=== PATIENT | male | born 1945 | race Caucasian/White ===

== ENCOUNTER → 2023-10-06 06:33 | Day surgery (SDC) | payer OTHER, SELFPAY | LOC: GI 06:33 | PROVIDERS: ATTENDING PHYSICIAN Internal Medicine Gastroenterology | DX: Z12.11 Encounter for screening for malignant neoplasm of colon (principal); K57.30 Diverticulosis of large intestine without perforation or abscess without bleeding; K22.710 Barrett's esophagus with low grade dysplasia; K22.70 Barrett's esophagus without dysplasia; K31.7 Polyp of stomach and duodenum; K44.9 Diaphragmatic hernia without obstruction or gangrene; K64.8 Other hemorrhoids; Z80.0 Family history of malignant neoplasm of digestive organs | CPT/HCPCS: 43239; G0105; 88305; 88342 ==

== ENCOUNTER 2023-12-17 15:25 | Emergency (ER) | payer OTHER, SELFPAY ==
[2023-12-17 15:28] VITALS: BP 140/81
[2023-12-17 15:45] VITALS: BP 159/94
[2023-12-17 15:55] VITALS: BMI 29.7
[2023-12-17] MEDS: DILAUDID 0.5 MG IV ×2 (15:58→16:37)
--- NOTE | 2023-12-17 15:59 | ED.GENMED ---
History of Present Illness
General
Chief Complaint: Fall
Source: patient and family
Exam Limitations: none
Time Seen by Provider: 12/17/23 15:40
Nursing documentation reviewed up to this point in time: agreed with
History of Present Illness
History of Present Illness:
78 y/o M with h/o GERD
here with left back pain, shoulder pain, rib pain after falling through the floor whne he was working while standing on subfloor/plank that broke, causing him to fall 10 feet onto the ground
he struck something with his left back on the way down
no anticoagulants
denies headache, loc
no nausea/vomiting/diarrhea
pt has pain with breathing and movement, left shoulder pain and tenderness
denies pelvis pain, abdomianl pain
someone at his work picked him up and brought him
he was able to walk a few steps
no numbness/tingling/wekaness
Past History
Past History
ED Past Medical History: GERD
Social History
Tobacco: Non-smoker
Alcohol: None
Drug: None
Personal:
Living: with family
Review of Systems
Review of Systems
Allergies reviewed?: Yes
All Other Systems: Not applicable
Phy Exam
Physical Exam
Physical Exam:
GENERAL: Alert , in no apparent distress
HEAD: NCAT
NECK: no midline tenderness, active ROM intact, no paraspinal muscle tenderness;
PLACED IN C COLLAR DUE TO MECHANISM
EYE: pupils equal and reactive, EOMs intact.
ENT: o/p clr, mmm. no hemotympanum
CARDIAC: Regular rate and rhythm, no edema
LUNGS: Clear breath sounds bilaterally, no acute respiratory distress, no wheezes/rales/rhonchi
CHEST WALL: SPLINTING WITH BREATHING
ABDOMEN: Soft, without focal tenderness, no r/g, no cvat
BACK: NO MIDLINE TENDNERESS
LEFT FLANK CVA REGION ECCHYMOSIS AND TENDERNESS
NEUROLOGICAL: Alert and oriented, no focal neuro deficits, CN intact, 5/5 strength, sensation intact
SKIN: Warm and dry,
LEFT FLANK ERYTHEMA/CONTUSION TENDERNESS
MUSCULOSKELETAL: No edema, well perfused.
LEFT SHOULDER TENDER, LIMITED rom
PSYCH: Normal and appropriate interaction.
Course
Orders/Labs/Results
Orders:
Orders
12/17/23 15:53
Electrocardiogram (*1) Urgent
Reason for Study: Other
Other Reason for Exam: trauma
CT Cervical Spine W/o Iv Contr Urgent
Comment:
Reason For Exam: fall [address] Chest/abd/pel W Iv Cont Urgent
Reason For Exam: left flank contusion fall [address] Head W/o Iv Contrast Urgent
Comment:
Reason For Exam: fal 10 feet
Cardiac Monitoring- Treatment ONCE
EKG- Treatment ONCE
HYDROmorphone [Dilaudid] 0.5 mg IV NOW STA
Shoulder, Left, Trauma CR [CR Shoulder, Trauma - Left] Urgent
Comment:
Reason For Exam: left shoulder pain after fall
12/17/23 15:55
HYDROmorphone [Dilaudid] 0.5 mg .ROUTE .STK-MED ONE
12/17/23 15:56
Comprehensive Metabolic Panel Urgent
PTT Urgent
Prothrombin Time Urgent
Troponin I Urgent
12/17/23 15:57
Type+Screen Urgent
Complete Blood Count/With Diff Urgent
12/17/23 16:31
HYDROmorphone [Dilaudid] 0.5 mg IV NOW STA
12/17/23 17:32
Ketorolac [Toradol] 30 mg .ROUTE .STK-MED ONE
Ankle, Right 3 view CR [CR Ankle - Right Min 3 Views *] Urgent
Comment:
Reason For Exam: RIGHT ANKLE PAIN FALL
12/17/23 17:34
Ketorolac [Toradol] 30 mg IV NOW STA
12/17/23 18:56
Oxycodone/Acetaminophen [Percocet 5/325] 1 tablet PO NOW STA
Incentive Spirometry [Rx Incentive Spirometry] [RESP] Urgent
Frequency: q1h while awake
Abnormal Lab Results
12/17/23 12/17/23
15:56 15:57
RBC 4.62 L 10^6/uL
(4.70-6.10)
Abs Immat Gran (auto) 0.1 H 10^3/uL
(0-0.05)
Absolute Neuts (auto) 7.9 H 10^3/uL
(1.4-6.5)
Absolute Monos (auto) 0.7 H 10^3/uL
(0.1-0.6)
Immature Gran % 1.0 H %
(0-0.5)
Lymphocytes % 15.7 L %
(20.5-51.1)
Chloride 109 H mmol/L
(98-107)
BUN 23 H mg/dl
(9-20)
Glucose 206 H mg/dl
(70-99)
12/17/23 15:57
12/17/23 15:56
Vital Signs
Initial and Last Documented VS:
Initial Vital Signs
Temp Pulse Resp BP Pulse Ox
98.1 F 88 18 140/81 96
12/17/23 15:28 12/17/23 15:28 12/17/23 15:28 12/17/23 15:28 12/17/23 15:28
Last Documented Vital Signs
Temp Pulse Resp BP Pulse Ox
98.1 F 69 23 138/75 96
12/17/23 15:28 12/17/23 19:20 12/17/23 19:20 12/17/23 19:01 12/17/23 19:20
MDM/Problems Addressed
Differential Diagnosis Includes:
rib fx, back fx, cervical fx, concussion, PTX, intraabdominal injury
MDM/Problems Addressed:
78 yt/o M
fall through a plank when working in the ceiling above basement, landing on left back/side
no loc
having left rib and lower back pain, mild neck pain, painful breathing
stable vitals
but given mechanism of fall 10 feet with his age and complaints, trauma alert called and ED attending dr. yen aware
obvious bruising on L flank concerning for kidney injury/splenic injury
kirk scan revealed 2 rib fx, 2 lmbar spinous process fx
no PTX
no visceral injury
head/neck cleared,
observed in the ED, stable mental status
pt was given several rounds of pain meds, and pain toelrable
and pt would like to be discharged
tylenol tid
motrin tid
lidocaine patch
if pain severe, oxycodone
incentive psirometry
*Critical Care Note
Total Time (30-74mins, 75-104mins- exclusive of procedures): Not Applicable
ED Attending Note
-
Portions of this chart may have been created with voice recognition software.� Occasional wrong word or��sound alike� substitutions may have occurred due to the inherent limitations of voice recognition software.
Discharge Plan
Departure
Patient Disposition: Home (Routine Discharge)
Date of Disposition: 12/17/23
Time of Disposition: 19:09
Patient with high blood pressure during this ER visit?: No
Condition: Fair
Covid-19: Not Applicable
Discharge Problem:
Rib fractures, Fracture of transverse process of lumbar vertebra
Instructions: Low Back Pain (DC), Shoulder Tendinopathy (DC), Rib Fracture or Bruised Rib ED
Prescriptions:
New
oxycodone 5 mg tablet
5 mg PO Q8H PRN (Reason: Pain) Qty: 15 0RF
lidocaine 5 % adhesive patch,medicated
1 patch topical DAILY PRN (Reason: PAIN) Qty: 15 0RF
Referrals:
Radha Pulido MD [Family Provider] - Follow up in 2-3 days
Activity Restrictions/Additional Instructions:
You broke 2 ribs, your 11th and 12th ribs on the left side and you do have to lumbar spinous process fractures L1 and L2. These are stable and should heal on their own. He may have a degree of pain over the next couple of weeks related to these
fractures. Take Tylenol 3 times a day for pain. You can also take ibuprofen 2-3 times a day as well with food. If your pain is severe you can use oxycodone 5 mg every 6 hours as needed. This is an opiate and would require you to also take a
stool softener to avoid constipation. You should not drive or drink alcohol on this medication. Please follow-up with your doctor next week. You may need to see a painter tumbling barrel or a back specialist regarding her lumbar fractures.
You may need physical therapy. Your shoulder is not fractured but you do have what looks like chronic tendinopathy. Return for severe pain, fever, inability to take deep breaths, peeing blood, leg weakness or numbness, incontinence or any concerns
Interventions
Interventions:
*Risk Screen - Suicide Last Done: 12/17/23 15:55
*General Assessment Last Done: 12/17/23 15:55
*Neglect/Abuse Screening Last Done: 12/17/23 19:23
ED- Fall Risk Assessment Last Done: 12/17/23 19:47
*ED COVID-19 Vaccine History Last Done: 12/17/23 15:55
*Nursing Disposition Last Done: 12/17/23 19:47
ED-Musculoskeletal Assessment Last Done: 12/17/23 15:55
ED- Neurological Assessment Last Done: 12/17/23 15:55
ED-Skin Assessment Last Done: 12/17/23 15:55
Discharge Date and Time
Discharge Date/Time: 12/17/23 19:47
Print Language: BAHRAINI
[2023-12-17 16:00] VITALS: BP 145/83
[2023-12-17 16:05] LABS: % Basophils 0.8 % (0-2); % Eosinophils 1.1 % (0-6); % Lymphocytes 15.7 % (20.5-51.1); % Monocytes 6.9 % (1.7-9.3); % Neutrophils 74.5 % (42.2-75.2); Absolute Basophils 0.1 10^3/uL (0-0.2); Absolute Eosinophils 0.1 10^3/uL (0-0.7); Absolute Immature Granulocytes 0.1 10^3/uL (0-0.05); Absolute Lymphocytes 1.7 10^3/uL (1.2-3.4); Absolute Monocytes 0.7 10^3/uL (0.1-0.6); Absolute Neutrophils 7.9 10^3/uL (1.4-6.5); Hematocrit 40.2 % (39.0-52.0); Mean Corp Hgb Conc. 34.8 g/dL (33.0-37.0); Mean Corpuscular Hgb 30.3 pg (27.0-31.0); Mean Platelet Volume 10.2 fL (7.4-10.4); Nucleated Red Blood Cells % 0 % (-); Platelet Count 229 10^3/uL (130-400); Red Blood Cell Count 4.62 10^6/uL (4.70-6.10); Red Cell Dist. Width 13.1 % (11.5-14.5); White Blood Cell Count 10.6 10^3/uL (4.8-10.8)
[2023-12-17 16:19] LABS: ALT (SGPT) 30 U/L (0-50); AST (SGOT) 37 U/L (17-59); Albumin 4.5 g/dl (3.5-5.0); Alkaline Phosphatase 84 U/L (38-126); Blood Urea Nitrogen 23 mg/dl (9-20); Calcium 9.7 mg/dl (8.4-10.2); Carbon Dioxide 23 mmol/L (22-30); Chloride 109 mmol/L (98-107); Estimated Creatinine Clearance 67 ml/min; Glucose 206 mg/dl (70-99); Potassium 4.2 mmol/L (3.5-5.1); Sodium 142 mmol/L (135-145); Total Bilirubin 0.8 mg/dl (0.2-1.3); Total Protein 7.5 g/dl (6.3-8.2); eGFR > 60.00
[2023-12-17 16:30] LABS: Troponin I < 0.012 ng/ml
[2023-12-17 16:36] LABS: INR 1.07; PT 13.9 Sec (11.4-14.6)
--- NOTE | 2023-12-17 16:55 | EDRN ---
AT 1551 TRAUMA ALERT CALLED ON PT. C COLLAR PLACED AND C SPINE PRECAUTIONS MAINTAINED. PT PLACED ON 2L NC. PT C/O L SIDED SHOULDER AND BACK PAIN. PT WITH NOTED L FLANK ABRASION. NO SPINAL TENDERNESS WHEN ROLLED MAINTAINING SPINAL PRECAUTIONS. PT
WITH 2+ DP AND 2+ RADIAL PULSES BILATERALLY. PT WITH EQUAL SENSATION TO ALL 4 EXTREMITIES. PT WITH + SENSATION TO BUTTOCKS. RECTAL TONE DEFERRED. 18G IV PLACED AND LABS SENT. PT ALSO WITH R HAND ABRASION NOTED. PT DENIES THINNER, HEAD STRIKE, OR
LOC. PT C/O PAIN WITH DEEP BREATHE AND STATES HE FEELS THOUGH HIS BREATHE IS MORE RASPY SINCE THE FALL. PT GCS 15. PT TAKEN TO CT SCAN ESCORTED BY RN REMAINING ON RESIDENTIAL SUPPORT WORKER. SPINAL PRECAUTIONS MAINTAINED THROUGHOUT TRANSPORT TO AND FROM CT.
PT PUPILS 3, EQUAL AND REACTIVE TO LIGHT. BREATHE SOUNDS EQUAL BILATERALLY.
ANAMIKA TERAN AND MD GIOVANA HARGROVE BOTH AT BEDSIDE THROUGHOUT TRAUMA ALERT.
[2023-12-17 17:00] VITALS: BP 134/79
[2023-12-17] MEDS: TORADOL 30 MG IV (17:35)
[2023-12-17 19:01] VITALS: BP 138/75
[2023-12-17] MEDS: PERCOCET 5/325 1 TABLET PO (19:02)
== END 2023-12-17 19:47 | disposition home or self-care (01) ==
LOC: EMR 15:25
PROVIDERS: Physician Assistant; EMERGENCY PHYSICIAN Emergency Medicine; FAMILY PHYSICIAN Family Medicine
DX: S22.32XA Fracture of one rib, left side, initial encounter for closed fracture (principal); S32.018A Other fracture of first lumbar vertebra, initial encounter for closed fracture; S32.028A Other fracture of second lumbar vertebra, initial encounter for closed fracture; S30.1XXA Contusion of abdominal wall, initial encounter; W19.XXXA Unspecified fall, initial encounter
CPT/HCPCS: 99283; 96374; 96375; 96376; 70450; 71260; 72125; 73030; 73610; 74177; 80053; 84484; 85025; 85610; 85730; 86850; 86900; 86901; 93005; Q9967

== ENCOUNTER → 2023-12-26 09:47 | Outpatient (REF) | payer OTHER, SELFPAY | LOC: HWRAD 09:47 | PROVIDERS: ATTENDING PHYSICIAN Family Medicine | DX: S92.121D Displaced fracture of body of right talus, subsequent encounter for fracture with routine healing (principal) | CPT/HCPCS: 73610 ==

== ENCOUNTER → 2024-01-07 15:18 | Outpatient (REF) | payer OTHER, SELFPAY | LOC: PAVMRI 15:18 | PROVIDERS: ATTENDING PHYSICIAN Orthopaedic Surgery; FAMILY PHYSICIAN Family Medicine | DX: M25.512 Pain in left shoulder (principal) | CPT/HCPCS: 73221 ==

== ENCOUNTER 2024-04-21 20:40 | Emergency (ER) | payer OTHER, SELFPAY ==
[2024-04-21 20:42] VITALS: BP 154/78
--- NOTE | 2024-04-21 21:32 | ED.GENMED ---
History of Present Illness
General
Chief Complaint: DVT/Possible Blood Clot
Source: patient
Exam Limitations: none
Time Seen by Provider: 04/21/24 21:19
Nursing documentation reviewed up to this point in time: agreed with
History of Present Illness
History of Present Illness:
Patient is a 78-year-old male presents to the ER complaining of pain behind his right posterior knee which started last night. 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 He denies any actual injury. He denies any
redness to the knee he does complain of some calf swelling. He has discomfort with ambulating.
He has not take anything for symptom
Past History
Past History
ED Past Medical History: GERD
Social History
Tobacco: Non-smoker
Alcohol: None
Drug: None
Personal:
Living: with family
Review of Systems
Review of Systems
Allergies reviewed?: Yes
All Other Systems: ROS reviewed and negative except as documented in HPI and ROS
Constitutional: Reports no symptoms; Denies fever
Musculoskeletal: Reports other (pain behind right knee/+ calf swelling )
Skin: Reports no symptoms
Hematologic/Lymphatic: Reports no symptoms
Psychiatric: Reports no symptoms
Phy Exam
General Physical Exam
General Presentation: no apparent distress
General age: appears stated age
General Skin: warm and dry
General Habitus: normal
General Mental: alert
General Hydration: appears well hydrated
Neurological Exam
Neurological Exam: alert and oriented x3
Musculoskeletal Exam
Musculoskeletal Exam: other (Normal inspection to right knee no erythema no laxity able to flex and extend mild tenderness to posterior knee mild calf swelling)
Skin Exam
Skin Exam: normal color and warm/dry
Psychiatric Exam
Psychiatric Exam: normal mood/affect
Course
Orders/Labs/Results
Orders:
Orders
04/21/24 20:45
US Legs, Right [US Periph Venous LOWER Ext RT] Urgent
Comment:
Reason For Exam: pain, swelling
04/21/24 21:53
Ibuprofen [Motrin] 400 mg PO NOW STA
Knee, Right 4 or More Views [CR Knee- Right 4 Or More View*] Urgent
Comment:
Reason For Exam: pain
Vital Signs
Initial and Last Documented VS:
Initial Vital Signs
Temp Pulse Resp BP Pulse Ox
98.1 F 94 18 154/78 96
04/21/24 20:42 04/21/24 20:42 04/21/24 20:42 04/21/24 20:42 04/21/24 20:42
Last Documented Vital Signs
Temp Pulse Resp BP Pulse Ox
98.1 F 94 18 154/78 96
04/21/24 20:42 04/21/24 20:42 04/21/24 20:42 04/21/24 20:42 04/21/24 20:42
MDM/Problems Addressed
Differential Diagnosis Includes:
Not limited to DVT, sprain strain to Null's cyst
MDM/Problems Addressed:
ultrasound is neg for DVT; right popliteal Null's cyst; no acute findings on knee xray .
will DC with ibuprofen, rest elevation and ortho f/u.
*Radiology
Radiology exam reviewed: radiology read reviewed (No evidence of DVT right popliteal/Null's cyst; no acute findings on knee xray )
*Pulse Oximetry
Patient hypoxic: no
*Critical Care Note
Total Time (30-74mins, 75-104mins- exclusive of procedures): Not Applicable
ED Attending Note
-
Portions of this chart may have been created with voice recognition software.� Occasional wrong word or��sound alike� substitutions may have occurred due to the inherent limitations of voice recognition software.
Discharge Plan
Departure
Patient Disposition: Home (Routine Discharge)
Date of Disposition: 04/21/24
Time of Disposition: 22:20
Patient with high blood pressure during this ER visit?: Yes
Condition: Fair
Covid-19: Not Applicable
Discharge Problem:
Null cyst
Instructions: Null's Cyst (DC), BLOOD PRESSURE
Prescriptions:
No Action
oxycodone 5 mg tablet
5 mg PO Q8H PRN (Reason: Pain) Qty: 15 0RF
lidocaine 5 % adhesive patch,medicated
1 patch topical DAILY PRN (Reason: PAIN) Qty: 15 0RF
Referrals:
Abraham Langford MD [Active] -
Activity Restrictions/Additional Instructions:
As discussed rest as much as possible; keep elevated as much as possible. You may take ibuprofen 400 mg every 8 hours with food.
call orthopedics for appointment in the next several days and return if any worsening of symptoms.
Interventions
Interventions:
ED-Skin Assessment Last Done: 04/21/24 21:48
Discharge Date and Time
Print Language: AMHARIC
[2024-04-21] MEDS: MOTRIN 400 MG PO (22:17)
[2024-04-21 22:22] VITALS: BP 117/69
[2024-04-21 22:25] VITALS: BP 117/69
== END 2024-04-21 22:37 | disposition home or self-care (01) ==
LOC: EMR 20:40
PROVIDERS: EMERGENCY PHYSICIAN Emergency Medicine; FAMILY PHYSICIAN Family Medicine
DX: M71.21 Synovial cyst of popliteal space [Baker], right knee (principal); R22.41 Localized swelling, mass and lump, right lower limb; K21.9 Gastro-esophageal reflux disease without esophagitis
CPT/HCPCS: 99284; 73564; 93971

== ENCOUNTER → 2024-11-03 10:53 | Outpatient (REF) | payer OTHER, SELFPAY | LOC: RAD 10:53 | PROVIDERS: ATTENDING PHYSICIAN Family Medicine | DX: M54.50 Low back pain, unspecified (principal); M54.6 Pain in thoracic spine | CPT/HCPCS: 72072; 72110 ==

== ENCOUNTER 2025-02-07 08:14 | Inpatient (IN) | payer OTHER, SELFPAY ==
[2025-02-06 11:54] VITALS: BP 180/92
--- NOTE | 2025-02-06 12:46 | ED.GENMED ---
History of Present Illness
General
Chief Complaint: Abdominal Symptoms
Source: patient
Time Seen by Provider: 02/06/25 12:12
History of Present Illness
History of Present Illness:
79-year-old male with past medical history of GERD and previous hernia repair presents to the ER for evaluation of a sudden onset of left lower quadrant/pelvic pain that began acutely at 9:30 AM accompanied with nausea, had multiple nonbloody
nonbilious episodes of emesis with continued pain here noting during exam pain seemed to be worsening. Patient states this morning he did not have a bowel movement noting yesterday he had a large BM but that it has been harder for him to go more
recently. He denies any urinary symptoms. Reyes fevers, chills, rigors, or any other concerns presently. Patient did not take any meds EMT/PARAMEDIC
Past History
Past History
ED Past Medical History: GERD
ED Past Surgical History: Other
Social History
Tobacco: Non-smoker
Alcohol: None
Drug: None
Personal:
Living: with family
Review of Systems
Review of Systems
All Other Systems: ROS reviewed and negative except as documented in HPI and ROS
Phy Exam
Physical Exam
Physical Exam:
GENERAL: Alert , appears uncomfortable
EYE: clear conjunctiva b/l
HEAD: NCAT
ENT: o/p clr, mmm.
CARDIAC: Regular rate and rhythm .
LUNGS: Clear breath sounds bilaterally, no acute respiratory distress, no wheezes/rales/rhonchi
ABDOMEN: Hard nonreproducible lump within the left inguinal region that is significantly tender to palpation but without any overlying erythema, unable to reduce. Patient grimaces in pain when palpated
NEUROLOGICAL: Alert and oriented
SKIN: Warm and dry, skin intact.
MUSCULOSKELETAL: No edema, well perfused.
PSYCH: Normal and appropriate interaction.
Scores
Heart Failure Risk
Heart Failure Risk Score: Not Applicable
Heart Score for Chest Pain Patients
STEMI patient?: Not applicable
Withdrawal Assessment of Alcohol
Withdrawal Assessment Completed?: Not applicable
Course
Orders/Labs/Results
Orders:
Orders
02/06/25 12:26
CT Abd/pelvis W Iv Cont Urgent
Comment:
Reason For Exam: suspected incarcerated left inguinal hernia
Urinalysis Reflex To Culture Urgent
0.9% Sodium Chloride 1000 ml [Nss] 1,000 ml IV BOLUS
Morphine Sulfate 4 mg IV NOW STA
Ondansetron Injectable [Zofran] 4 mg IV NOW STA
02/06/25 12:54
Basic Metabolic Panel Urgent
Complete Blood Count/With Diff Urgent
Lactic Acid Q4H
Comment: CANCEL 2nd LACTIC ACID IF 1st LACTIC ACID IS LESS THAN 2
02/06/25 13:24
HYDROmorphone [Dilaudid] 1 mg IV NOW STA
02/06/25 13:25
HYDROmorphone [Dilaudid] 1 mg .ROUTE .STK-MED ONE
02/06/25 14:17
HYDROmorphone [Dilaudid] 1 mg IV NOW STA
Midazolam HCl [Versed] 5 mg .ROUTE .STK-MED ONE
02/06/25 14:21
Midazolam HCl [Versed] 1 mg IV NOW STA
Abnormal Lab Results
02/06/25
12:54
Absolute Neuts (auto) 6.6 H 10^3/uL
(1.4-6.5)
Neutrophils % 75.5 H %
(42.2-75.2)
Lymphocytes % 13.9 L %
(20.5-51.1)
BUN 22 H mg/dl
(9-20)
Glucose 184 H mg/dl
(70-99)
02/06/25 12:54
02/06/25 12:54
Vital Signs
Initial and Last Documented VS:
Initial Vital Signs
Temp Pulse Resp BP Pulse Ox
97.9 F 60 16 180/92 98
02/06/25 11:54 02/06/25 11:54 02/06/25 11:54 02/06/25 11:54 02/06/25 11:54
Last Documented Vital Signs
Temp Pulse Resp BP Pulse Ox
97.9 F 72 17 180/92 95
02/06/25 11:54 02/06/25 14:30 02/06/25 14:30 02/06/25 11:54 02/06/25 13:30
MDM/Problems Addressed
Differential Diagnosis Includes:
Incarcerated versus strangulated inguinal hernia
Renal/ureteral colic
Diverticulitis
Bowel obstruction
Colitis
Cystitis
Pyelonephritis
MDM/Problems Addressed:
79-year-old male presenting to the ER for evaluation of sudden onset of left lower abdomen/pelvic pain noting a hard lump within the area. History of inguinal hernias in the past status post repair but on the right side. Based off of exam I do
have significant concern for strangulated or incarcerated hernia. Will send for stat CT imaging. Notified general surgery who requests an ice pack to be placed to the area and patient lay head down. Labs including lactic acid ordered.
Disposition pending
*Radiology
Radiology exam reviewed: radiology read reviewed
*Pulse Oximetry
SaO2: 98
Oxygen Mode of Delivery: Room air
Patient hypoxic: no
*Critical Care Note
Total Time (30-74mins, 75-104mins- exclusive of procedures): Not Applicable
Patient Management
Discussion with other providers: Area Forester and Radiologist
Escalation/DeEscalation of care consider admission/obs:
Radiologist notified me via [place] text findings on CT scan concerning for ischemic bowel/strangulated hernia. Surgery team to the bedside to evaluate the patient, unfortunately unable to reduce at the bedside so will be taking to the OR for repair.
Patient had initial relief with morphine but pain did return and so was treated with an additional 1 mg of Dilaudid IV.
ED Attending Note
-
Portions of this chart may have been created with voice recognition software.� Occasional wrong word or��sound alike� substitutions may have occurred due to the inherent limitations of voice recognition software.
Discharge Plan
Departure
Patient Disposition: OR
Date of Disposition: 02/06/25
Time of Disposition: 14:36
Presentation/result/management discussed w/ accepting MD/DO: Dr. Wilkins
Discharge Problem:
Incarcerated left inguinal hernia
Prescriptions:
No Action
oxycodone 5 mg tablet
5 mg PO Q8H PRN (Reason: Pain) Qty: 15 0RF
lidocaine 5 % adhesive patch,medicated
1 patch topical DAILY PRN (Reason: PAIN) Qty: 15 0RF
Referrals:
Radha Lopez CRNP [Family Provider, General]
Interventions
Interventions:
*Risk Screen - Suicide Last Done: 02/06/25 11:54
*General Assessment Last Done: 02/06/25 13:05
*Neglect/Abuse Screening Last Done: 02/06/25 11:54
*ED- Fall Risk Assessment Last Done: 02/06/25 13:05
JI-Seirff-[place] Assessment Last Done: 02/06/25 13:05
Discharge Date and Time
Print Language: MAURITIAN
[2025-02-06] MEDS: MORPHINE SULFATE 4 MG IV (12:52)
[2025-02-06] MEDS: ZOFRAN 4 MG IV (12:53)
[2025-02-06] MEDS: NSS 1000 IV ×2 (12:53→17:28)
[2025-02-06 13:00] VITALS: BMI 28.8
[2025-02-06 13:24] LABS: Hematocrit 42.7 % (39.0-52.0); Hemoglobin 14.5 g/dL (13.0-18.0); Mean Corp Hgb Conc. 34.0 g/dL (33.0-37.0); Mean Corpuscular Volume 87.9 fL (80.0-94.0); Nucleated Red Blood Cells % 0 % (-); Platelet Count 224 10^3/uL (130-400); Red Cell Dist. Width 13.0 % (11.5-14.5)
[2025-02-06] MEDS: DILAUDID 1 MG IV ×3 (13:28→17:37)
[2025-02-06 13:33] LABS: Blood Urea Nitrogen 22 mg/dl (9-20); Calcium 9.5 mg/dl (8.4-10.2); Carbon Dioxide 27 mmol/L (22-30); Chloride 107 mmol/L (98-107); Estimated Creatinine Clearance 71 ml/min; Glucose 184 mg/dl (70-99); Potassium 4.1 mmol/L (3.5-5.1); Sodium 141 mmol/L (135-145); eGFR > 60.00
[2025-02-06] MEDS: VERSED 1 MG IV (14:23)
[2025-02-06 14:43] VITALS: BP 161/78
--- NOTE | 2025-02-06 14:50 | HPS.HSE ---
Addendum entered and electronically signed by Moshe Wilkins MD 02/06/25 19:52:
I saw and examined the patient.
The AUTO POLISHER's note was reviewed and I agree with the note.
Comment: Incarcerated LIH with small bowel. Stranding and wall thickening of the bowel on imaging. Unsuccessful attempted reduction at bedside with 1mg versed and 1mg dilaudid. Right inguinal lymphadenopathy. OCTOR for MIS approach LI[facility], possible
ex-lap with bowel resection; right inguinal LNBx. Informed consent obtained prior to medication administration. D/w and step-daughters.
Original Note:
Family Physician
-
Family Physician: FRANTZ Bardales
Chief Complaint
-
ABD pain
History of Present Illness
79 yo male with a h/o left inguinal hernia repair with mesh in 2007 with recurrence and recent left TSA in September who presents with nausea and vomiting and worsening pain at known left inguinal hernia site. He notes that over the past few weeks he
has been constipated since increasing his GERD medications with increased straining. This morning he was able to pass a large BM but then he subsequently developed severe pain to the left groin accompanied by nausea and vomiting. His discomfort
persisted causing him to present through the ED for evaluation. He currently denies active nausea. Left inguinal hernia present and not able to be reduced at bedside, associated tenderness noted but no overlying skin changes. Of note, there is a
bulge to the right inguinal region as well which is soft and nontender.
Medical History
Past Medical History
Past Medical History: Reports Cancer (MOHs for ?melanoma), GERD and Hypercholesterolemia
Past Surgical History: Reports Appendectomy, Orthopedic (left reverse TSA 09/2024 ) and Other (Left inguinal hernia repair with mesh 2007)
Social History
Tobacco: Non-smoker
Alcohol: None
Personal:
Living: With Family
Family History
Family History: Cancer (father)
Allergies / Home Medications
Allergies reflects when Allergies were last updated in [facility].
Home Medications with original date entered in [facility]
Allergy/Medication List:
Patient Allergies
Allergy/AdvReac Type Severity Reaction Status Date / Time
No Known Allergies Allergy Verified 02/06/25 11:56
�Medication �Instructions �Recorded �Confirmed �Type
Nutrafol Men 2 cap PO DAILY 02/06/25 02/06/25 History
diphenhydramine 25 2 tab PO HSPRN PRN sleep 02/06/25 02/06/25 History
mg-acetaminophen 500 mg tablet
(Acetaminophen PM)
omega 1-vfb-bbe-fish oil 900 2 cap PO DAILY 02/06/25 02/06/25 History
mg-1,400 mg capsule,delayed release
pantoprazole 40 mg tablet,delayed 40 mg PO BID 02/06/25 02/06/25 History
release
polyethylene glycol 3350 17 gram 17 g PO DAILYPRN PRN constipation 02/06/25 02/06/25 History
oral powder packet
rosuvastatin 5 mg tablet 5 mg PO DAILY 02/06/25 02/06/25 History
therapeutic multivitamin 1 tab PO DAILY 02/06/25 02/06/25 History
Review of Systems
-
History Source: Patient and Family
A 12 point ROS was completed and negative except as noted: Yes
Physical Exam
Vital Signs
Vital Signs
Temp Pulse Resp BP Pulse Ox
97.9 F 72 17 161/78 95
02/06/25 11:54 02/06/25 14:30 02/06/25 14:30 02/06/25 14:43 02/06/25 13:30
Physical Exam
General: Well Developed; No Comfortable
HEENT: Moist mucous membranes
Respiratory: Non Labored Respirations
GI: Soft, Non Distended and Other (left inguinal hernia; tender and unable to be reduced. right groin with bulging but soft and nontender)
Skin: Warm and Dry
Neuro: Awake, Alert and AO x 3
Psych: Calm
Laboratory Results
-
02/06/25 12:54
02/06/25 12:54
Laboratory Results
Lactic Acid Cancelled 02/06/25 16:30
Data Reviewed
-
CT Scan: Image Personally Visualized and interpreted, Report Reviewed by me, Discussed with Physician, Discussed with Patient and Discussed with Family
Lab Data: Labs Reviewed by me, Discussed with Physician and Discussed with Patient
Old Records: Reviewed
Impression/Plan
-
IMPRESSION: 79 yo male with prior open left inguinal hernia repair with mesh in 2007 presenting with recurrence of hernia with incarceration after straining to have a BM. CT imaging reviewed with loop of small bowel and associated edema within the
hernia sac. The hernia was unable to be reduced at bedside despite multiple attempts. At risk for bowel compromise/strangulation, will plan urgent hernia repair. Of note, there is a bulging to the right groin which is soft and nontender. CT imaging
with soft tissue nodule noted, ?enlarged lymph node which will need future evaluation.
PLAN:
NPO for OR later today once OR available
ABX coroner/medical examiner to OR
Analgesics/antiemetics prn
IVF while NPO
SCDs for VTE ppx
--- NOTE | 2025-02-06 16:13 | CM ---
CM reviewed chart and met with pt's daughter Khalida in ED, physician with pt. Pt lives alone in 2 story home, [address], has first floor full BA, second floor BR.
Independent in ADLs, personal care and ambulation at baseline. No assistive devices.
Confirms prescription coverage.
No hx VN or SNF.
PCP: Radha Lopez
Pharmacy: [facility] [address] Daughter requesting non child proof caps if Rx given.
Anticipate discharge home, CM will continue to follow for any discharge planning needs.
[2025-02-06 16:31] LABS: Urine Character Clear (Clear)
[2025-02-06 16:41] LABS: Urine Squamous Cell 0-2 /LPF (Few)
[2025-02-06 17:04] VITALS: BP 162/81
--- NOTE | 2025-02-06 18:15 | PTCARENOTE ---
Pt arrived 1700 from ED. Pt was able to ambulate to bed. VSS. Oriented to room and call rae. and daughter at bedside. pain 10/10 medicated per MAR.
[2025-02-06] MEDS: DILAUDID 0.5 MG IV (19:47)
--- NOTE | 2025-02-06 20:55 | PTCARENOTE ---
pt taken to OR
[2025-02-07] VITALS (12 sets, daily range): BP systolic 125–162; BP diastolic 75–83
--- NOTE | 2025-02-07 01:28 | W.IMMPOSTOP ---
Surgical Immed Post Op Note
-
Primary Surgeon: Claudette
Pre-op Diagnosis: Incarcerated recurrent left inguinal hernia, right inguinal lymphadenopathy
Post-op Diagnosis: Strangulated recurrent left inguinal hernia, right inguinal lymphadenopathy
Procedure Performed: Robot assisted laparoscopic repair of strangulated recurrent left inguinal hernia, exploratory laparotomy, small bowel resection, right inguinal lymph node excisional biopsy
Anesthesia Type: GETA
Specimen / Cultures: Right inguinal lymph node
Estimated Blood Loss: 20cc
Complications: None immediate
Operative Findings: Unable to reduce left inguinal hernia robotically, counter incision in the groin created to allow reduction; recurrent indirect defect noted, posterior preperitoneal repair performed with phasix mesh 6in x8in trimmed to size,
5cm periumbilical incision for exteriorization of necrotic loop of bowel (about 6cm segment), necrotic bowel resected and side-side stapled anastomosis created with 80mm AKANKSHA purple loads; bulky right inguinal lymph node excised
[2025-02-07] MEDS: OFIRMEV IV (02:06)
--- NOTE | 2025-02-07 02:10 | PTCARENOTE ---
Pt arrived from PACU, ox3, drowsy. vss. abdominal dressings c/d/i. at the bedside. ngt connected to low intermittent suction. ruiz draining yellow urine. oriented to room. call rae within reach.
[2025-02-07] MEDS: ZOSYN 50 IV ×4 (02:17→19:44)
[2025-02-07 08:12] LABS: Blood Urea Nitrogen 15 mg/dl (9-20); Calcium 8.6 mg/dl (8.4-10.2); Carbon Dioxide 27 mmol/L (22-30); Chloride 103 mmol/L (98-107); Estimated Creatinine Clearance 95 ml/min; Glucose 151 mg/dl (70-99); Magnesium 1.9 mg/dl (1.6-2.3); Potassium 4.0 mmol/L (3.5-5.1); Sodium 137 mmol/L (135-145); eGFR > 60.00
[2025-02-07 08:44] LABS: Hematocrit 42.4 % (39.0-52.0); Hemoglobin 14.0 g/dL (13.0-18.0); Mean Corp Hgb Conc. 33.0 g/dL (33.0-37.0); Mean Corpuscular Volume 90.0 fL (80.0-94.0); Platelet Count 209 10^3/uL (130-400); Red Cell Dist. Width 13.0 % (11.5-14.5)
[2025-02-07] MEDS: PROTONIX IV 40 MG IV ×2 (08:54→19:43)
[2025-02-07] MEDS: NSS (PRESERVATIVE FREE) 10 ML IV ×2 (08:54→19:44)
[2025-02-07] MEDS: OFIRMEV 100 IV ×3 (08:56→19:44)
--- NOTE | 2025-02-07 09:52 | W.PN.GS2 ---
Addendum entered and electronically signed by Moshe Wilkins MD 02/07/25 12:04:
I was physically present and personally performed the katz portions of the surgical evaluation. I discussed the findings, reviewed the resident�s note, and confirmed the medical decision-making. I provided direct supervision as required and agree
with the assessment and plan as documented with the following additions/corrections:
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 Cont npo/ngt, prn pain meds, dvt ppx, iv abx
Original Note:
Today's Communication / Plan
-
Continue NPO status and NGT while awaiting return of bowel function
Continue antibiotics, pain control, antiemetics, IV fluids
Monitor clinical status
Assessment / Plan
-
Assessment: Incarcerated recurrent left inguinal hernia POD #1 s/p robot-assisted laparoscopic repair, ex lap, small bowel resection, right inguinal lymph node excisional biopsy
Patient reporting no pain, nausea, or vomiting
Awaiting return of bowel function - patient yet to have BM, pass flatus
AFVSS, no leukocytosis, labs unremarkable
Plan:
Continue piperacillin/tazobactam
Acetaminophen, ketorolac, Dilaudid for pain control as needed
Ondansetron for nausea as needed
NPO with NGT while awaiting ROBF
Continue IVF while NPO
SCDs, Lovenox for DVT prophylaxis
Monitor I's and O's
Subjective Data
-
Date of Service: February 07, 2025
Patient is seen at the bedside on POD #1. Patient reports no pain, nausea, or vomiting. He has not had a bowel movement or passed flatus since surgery last night.
Objective Data
-
Intake and Output
08/24/25 08/25/25 08/26/25
06:59 06:59 06:59
Intake Total 550 / 550 150 / 150
Output Total 575 / 575 350 / 350
Balance -25 / -25 -200 / -200
Intake:
IV fluids (Total) 500 / 500
normosol 100 / 100
IV piggybacks 50 / 50 150 / 150
Amount instilled into GI Tube ( 0 / 0
Total)
[place] Sump 0 / 0
Output:
Gastrointestinal tube output ( 200 / 200
Total)
[place] Sump 200 / 200
Urine, Ruiz 375 / 375 350 / 350
Other:
Number of unmeasured voidings 1
Vital Signs
Temp Pulse Resp BP Pulse Ox
99.0 F 83 16 140/79 97
02/07/25 07:00 02/07/25 07:00 02/07/25 07:00 02/07/25 07:00 02/07/25 07:00
Lab Results
02/07/25 08:17
02/07/25 06:30
Calcium 8.6 mg/dl (8.4-10.2) 02/07/25 06:30
Phosphorus 3.7 mg/dl (2.5-4.5) 02/07/25 06:30
Magnesium 1.9 mg/dl (1.6-2.3) 02/07/25 06:30
Physical Exam
-
Well-appearing, conversant, no acute distress. Abdomen soft, nonerythematous, nondistended, no fluctuance. Surgical sites clean, dry, and intact. Dressing intact. Right lower quadrant mildly tender (2-3/10 pain) on percussion. NGT in place,
draining brown liquid. Ruiz in place, draining clear, yellow urine.
Patient has a ruiz catheter: Yes
Patient has a central line: No
--- NOTE | 2025-02-07 14:34 | CM ---
CM following re: discharge planning.
Reviewed pt's chart, met with pt. Pt's daughter at bedside.
Pt is POD #1 s/p robot-assisted laparoscopic repair, ex lap, small bowel resection, right inguinal lymph node excisional biopsy, continue supportive care, continue NGT.
Pt's admission is upgraded to inpatient level. IMM reviewed. placed on chart, pt has a copy.
Pt lives alone in 2 story home, [address], has first floor full BA, second floor BR. Independent with ADL.
D/C plan: home with anticipated no needs. Family to transport at discharge.
CM will follow with discharge plan updates as hospitalization progresses
[2025-02-07] MEDS: NSS 1000 IV (16:04)
[2025-02-07] MEDS: LOVENOX 40 MG SC (19:46)
[2025-02-07] MEDS: NSS IV (20:49)
[2025-02-07 21:38] LABS: Hepatitis C Antibody Negative (Negative)
[2025-02-08] MEDS: ZOSYN 50 IV ×4 (01:52→20:31)
[2025-02-08 03:00] VITALS: BP 149/78
[2025-02-08] MEDS: DILAUDID 0.5 MG IV (03:49)
[2025-02-08] MEDS: NSS 1000 IV ×2 (03:49→20:32)
[2025-02-08 07:00] VITALS: BP 129/80
[2025-02-08] MEDS: PROTONIX IV 40 MG IV ×2 (08:34→20:32)
[2025-02-08] MEDS: NSS (PRESERVATIVE FREE) 10 ML IV ×2 (08:34→20:31)
[2025-02-08] MEDS: TORADOL 15 MG IV (08:43)
--- NOTE | 2025-02-08 08:48 | W.PN.GS2 ---
Addendum entered and electronically signed by Moshe Wilkins MD 02/08/25 09:37:
Benadryl IV added for sleep prn (takes tylenol PM at home occasionally and pt requesting)
Addendum entered and electronically signed by Moshe Wilkins MD 02/08/25 09:35:
I was physically present and personally performed the katz portions of the surgical evaluation and/or procedure with the resident. I discussed the findings, reviewed the resident�s note, and confirmed the medical decision-making. I provided direct
supervision as required and agree with the assessment and plan as documented with the following additions/corrections:
Denies n/v with ngt to suction, pain controlled. No flatus yet. Ambulating. Belly soft, aprop ttp, incisions cdi with brijesh. Ruiz out DTV. Clamp NGT. OK for sips and chips. Path pending. Labs tomorrow
Original Note:
Today's Communication / Plan
-
Assess bowel function with NG tube clamping trial
Monitor patient's ability to void following removal of Ruiz
Continue n.p.o. status, IV fluids pending ROBF
Continue antibiotics, pain control, antiemetics
Monitor clinical status
Assessment / Plan
-
Assessment: Incarcerated recurrent left inguinal hernia POD #2 s/p robot-assisted laparoscopic repair, ex lap, small bowel resection, right inguinal lymph node excisional biopsy
Patient reporting minimal pain (1-2/10), nausea, or vomiting
Awaiting return of bowel function - patient yet to have BM, pass flatus
AFVSS, no leukocytosis as of 02/07 (next labs tomorrow)
Pathology pending for right inguinal lymph node excisional biopsy
Plan:
Continue piperacillin/tazobactam
Pain control, as follows:
- Acetaminophen 1000 mg every 6 hours scheduled
- Ketorolac, Dilaudid as needed
Ondansetron for nausea as needed
NPO with NGT while awaiting ROBF
- NGT clamped this morning, will monitor
- Remove NGT if ROBF or no nausea/vomiting in 24 hours
Continue IVF while NPO
SCDs, Lovenox for DVT prophylaxis
Monitor ability to void, as Ruiz was pulled this morning
Repeat labs (CBC, BMP, mag, Phos) tomorrow (02/09) morning
Monitor I's and O's
Subjective Data
-
Date of Service: February 08, 2025
Patient seen at the bedside POD #2. Patient is feeling okay, same as yesterday. Patient has not had a bowel movement or passed flatus. Pain is well-controlled, 1-2/10 intensity while lying. Patient OOB yesterday and this morning. Ruiz removed
this morning.
Objective Data
-
Intake and Output
02/07/25 02/08/25 02/09/25
06:59 06:59 06:59
Intake Total 550 / 550 1460 / 1460
Output Total 575 / 575 1550 / 1550
Balance -25 / -25 -90 / -90
Intake:
IV fluids (Total) 500 / 500 960 / 960
normosol 100 / 100
IV piggybacks 50 / 50 500 / 500
Amount instilled into GI Tube ( 0 / 0
Total)
[place] Sump 0 / 0
Output:
Gastrointestinal tube output ( 200 / 200 0 / 0
Total)
[place] Sump 200 / 200 0 / 0
Urine, Ruiz 375 / 375 1550 / 1550
Other:
Number of unmeasured voidings 1
Vital Signs
Temp Pulse Resp BP Pulse Ox
98.6 F 69 16 129/80 93
02/08/25 07:00 02/08/25 07:00 02/08/25 07:00 02/08/25 07:00 02/08/25 07:00
Lab Results
02/07/25 08:17
02/07/25 06:30
Calcium 8.6 mg/dl (8.4-10.2) 02/07/25 06:30
Phosphorus 3.7 mg/dl (2.5-4.5) 02/07/25 06:30
Magnesium 1.9 mg/dl (1.6-2.3) 02/07/25 06:30
Physical Exam
-
General: No acute distress. Conversant.
Abdominal: Soft, nondistended, nonerythematous, no ecchymoses, no fluctuance. Mildly tender to percussion. Incisions clean, dry, and intact. Dressing intact. NG tube in place, but without output.
: Ruiz no longer in place.
Patient has a ruiz catheter: No
Patient has a central line: No
--- NOTE | 2025-02-08 09:42 | PTCARENOTE ---
pt Out of bed to bathroom, hygiene completed with assistance of . pt voided moderate amount of yellow urine into toilet. stated good urine stream , no blood or discomfort. urinal provided for monitoring. pt and expressed understanding.
care ongoing.
[2025-02-08] MEDS: OFIRMEV 100 IV ×3 (09:45→21:28)
--- NOTE | 2025-02-08 14:35 | CM ---
CM following re: discharge planning.
Reviewed pt's chart, met with pt.
Pt is POD #1 s/p robot-assisted laparoscopic repair, ex lap, small bowel resection, right inguinal lymph node excisional biopsy, continue supportive care, continue NGT.
Pt lives alone in 2 story home, [address], has first floor full BA, second floor BR. Independent with ADL.
D/C plan: home with anticipated no needs. Family to transport at discharge.
CM will follow with discharge plan updates as hospitalization progresses
[2025-02-08 15:05] VITALS: BP 127/82
[2025-02-08] MEDS: LOVENOX 40 MG SC (17:37)
[2025-02-08] MEDS: BENADRYL 25 MG IV (21:28)
[2025-02-08 23:03] VITALS: BP 137/76
[2025-02-09] MEDS: ZOSYN 50 IV ×4 (02:12→19:44)
[2025-02-09] MEDS: OFIRMEV 100 IV (03:41)
[2025-02-09 07:10] VITALS: BP 133/77
[2025-02-09] MEDS: NSS 1000 IV (08:18)
[2025-02-09] MEDS: NSS (PRESERVATIVE FREE) 10 ML IV ×2 (08:19→19:44)
[2025-02-09] MEDS: PROTONIX IV 40 MG IV ×2 (08:19→19:44)
[2025-02-09 09:39] LABS: Hematocrit 36.8 % (39.0-52.0); Hemoglobin 12.4 g/dL (13.0-18.0); Mean Corp Hgb Conc. 33.7 g/dL (33.0-37.0); Mean Corpuscular Volume 88.5 fL (80.0-94.0); Platelet Count 168 10^3/uL (130-400); Red Cell Dist. Width 13.2 % (11.5-14.5)
[2025-02-09 10:07] LABS: Chloride 108 mmol/L (98-107); Potassium 4.1 mmol/L (3.5-5.1); Sodium 138 mmol/L (135-145)
[2025-02-09 10:17] LABS: Blood Urea Nitrogen 23 mg/dl (9-20); Calcium 8.2 mg/dl (8.4-10.2); Carbon Dioxide 24 mmol/L (22-30); Estimated Creatinine Clearance 81 ml/min; Glucose 87 mg/dl (70-99); Magnesium 2.3 mg/dl (1.6-2.3); eGFR > 60.00
--- NOTE | 2025-02-09 11:01 | W.PN.GS2 ---
Addendum entered and electronically signed by Moshe Wilkins MD 02/09/25 11:42:
I was physically present and personally performed the katz portions of the surgical evaluation and/or procedure with the resident. I discussed the findings, reviewed the resident�s note, and confirmed the medical decision-making. I provided direct
supervision as required and agree with the assessment and plan as documented with the following additions/corrections:
Following expected course
Passing flatus
Exam approp
Adv to clears
Final day abx today
F/U path
Original Note:
Today's Communication / Plan
-
Continue to assess bowel function following NGT removal today
Diet advanced to clear liquids, with possible further advancement tomorrow as tolerated
Continue antibiotics, pain control, antiemetics, IVF
Monitor clinical status
Assessment / Plan
-
Assessment: Strangulated recurrent left inguinal hernia POD #3 s/p robot-assisted laparoscopic repair, ex lap, small bowel resection, right inguinal lymph node excisional biopsy
Patient reporting no pain, nausea, or vomiting
Patient passed flatus this morning, though no BM since surgery
AFVSS, no leukocytosis
Hemoglobin 12.4, mildly reduced from 14.0 two days ago; suspected delusional given IVF administration
Pathology pending for right inguinal lymph node excisional biopsy
Plan:
Continue piperacillin/tazobactam
Pain control, as follows:
- Acetaminophen 1000 mg every 6 hours scheduled
- Ketorolac, Dilaudid as needed
Ondansetron for nausea as needed
Diet: Clear liquids, with likely advancement to full liquids tomorrow if tolerated
Continue IVF for now while patient transitions clear liquid diet
SCDs, Lovenox for DVT prophylaxis
Monitor ability to void following Ruiz removal yesterday
Monitor for clinical signs of anemia (e.g., tachycardia, hypotension) given slight drop in Hgb
Monitor I's and O's
Subjective Data
-
Date of Service: February 09, 2025
Patient seen at bedside with Dr. Wilkins on POD #3. Patient has no pain. Patient passed flatus this morning, although no bowel movement since surgery. No nausea or vomiting approximately 24 hours into NGT clamping trial. Patient drank two 4 ounce
cups of apple juice yesterday without issue. Patient has been voiding without issue since removal of Ruiz yesterday. Patient has been OOB walking. Gastric residual volume checked bedside, with no NG tube output. NGT subsequently removed.
Objective Data
-
Intake and Output
02/08/25 02/09/25 02/10/25
06:59 06:59 06:59
Intake Total 2260 / 2260 2520 / 2520
Output Total 1550 / 1550 500 / 500
Balance 710 / 710 2019 / 2019
Intake:
Oral fluids 360 / 360
IV fluids (Total) 1760 / 1760 1760 / 1760
IV piggybacks 500 / 500 400 / 400
Output:
Gastrointestinal tube output ( 0 / 0 0 / 0
Total)
[place] Sump 0 / 0 0 / 0
Urine, Ruiz 1550 / 1550
Urine, Voided 500 / 500
Other:
Number of approximated MODERATE 1
amounts of urine
Vital Signs
Temp Pulse Resp BP Pulse Ox
97.6 F 62 16 133/77 96
02/09/25 07:10 02/09/25 07:10 02/09/25 07:10 02/09/25 07:10 02/09/25 07:10
Lab Results
02/09/25 09:03
02/09/25 09:03
Calcium 8.2 mg/dl (8.4-10.2) L 02/09/25 09:03
Phosphorus 2.8 mg/dl (2.5-4.5) 02/09/25 09:03
Magnesium 2.3 mg/dl (1.6-2.3) 02/09/25 09:03
Physical Exam
-
General: NAD, conversant.
Abdominal: Soft, nondistendedm, no ecchymoses, no fluctuance. Appropriately tender to percussion. NGT no longer in place.
Patient has a ruiz catheter: No
Patient has a central line: No
--- NOTE | 2025-02-09 14:21 | CM ---
CM following re: discharge planning.
Reviewed pt's chart, met with pt.
Pt is POD #2 s/p robot-assisted laparoscopic repair, ex lap, small bowel resection, right inguinal lymph node excisional biopsy, continue supportive care, continue NGT.
Pt lives alone in 2 story home, [address], has first floor full BA, second floor BR. Independent with ADL.
D/C plan: home with anticipated no needs. Family to transport at discharge.
CM will follow with discharge plan updates as hospitalization progresses
--- NOTE | 2025-02-09 15:07 | W.PN.UPDATE ---
Update Note
Progress Note Update
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 Daughter also present. Oncology consult placed.
[2025-02-09 16:00] VITALS: BP 128/84
[2025-02-09] MEDS: LOVENOX 40 MG SC (18:14)
[2025-02-09] MEDS: BENADRYL 25 MG IV (21:32)
[2025-02-09 23:00] VITALS: BP 156/81
[2025-02-09] MEDS: TORADOL 15 MG IV (23:43)
[2025-02-10] MEDS: DILAUDID 0.5 MG IV ×2 (01:18→22:37)
[2025-02-10] MEDS: ZOSYN 50 IV ×4 (01:57→19:52)
[2025-02-10 07:00] VITALS: BP 157/83
[2025-02-10] MEDS: NSS IV (08:24)
[2025-02-10] MEDS: PROTONIX IV 40 MG IV ×2 (08:25→19:52)
[2025-02-10] MEDS: NSS (PRESERVATIVE FREE) 10 ML IV ×2 (08:27→19:51)
[2025-02-10] MEDS: NSS 1000 IV (08:34)
--- NOTE | 2025-02-10 09:10 | CON.ONC ---
Consultation
-
Date Consultation Requested: 02/10/25
Date Consultation Performed: 02/10/25
Requesting Provider: Dr. Moshe Wilkins
Performing Provider: Dr. Eric Boss
Reason for Consultation: Lymphoma
Impression
Impression
79yo M admitted with an incarcerated LIH with small bowel, s/p robot assisted laparoscopic repair, ex lap, small bowel resection, right inguinal LN excisional biopsy on 02/07/2025. His R inguinal LN pathology was diagnostic for flollicular lymphoma,
low grade. No constitutional symptoms.
Plan
Plan
check LDH, uric acid
outpatient PET/CT
Medical oncology follow up will be arranged upon discharge
Patient History
History of Present Illness
79yo M who presented with nausea, vomiting, and worsening pain at his left inguinal hernia site on 02/06/2025. He notes that he had developed constipation over the past several weeks. He noted worsening in his hernia with straining to move bowels. On
the day of admission, he passed a large BM but then subsequently developed severe left groin pain accompanied by nausea and vomiting which prompted him to seek further evaluation in the ER.
His CT ab/pelvis with IVC showed a left inguinal hernia containing a loop of small bowel which demonstrates hypoattenuation, wall thickening and adjacent stranding and edema. Findings are concerning for incarcerated/strangulated inguinal hernia with
associated bowel ischemia. There are mildly prominent loops of small bowel which may represent an early/developing obstruction. There is a 3.2 x 2.9 cm right inguinal soft tissue nodule, possibly an enlarged lymph node. Moderate/large hiatal hernia.
Cholelithiasis. He underwent a robot assisted laparoscopic repair, ex lap, small bowel resection, right inguinal LN excisional biopsy on 02/07/2025. His R inguinal LN pathology was diagnostic for follicular lymphoma, low grade. His pre-operative CBC
and CMP are without significant abnormalities.
Clinically, he denies fever, chills, sweats, cough, sob, saab, chest pain, n/v. His post-operative pain is controlled. He is passing flatus and advancing diet as tolerated.
Past-Medical/Surgical History
PMH skin cancer, GERD and Hypercholesterolemia
PSH Appendectomy, left reverse TSA 09/2024, Left inguinal hernia repair with mesh 2007
Social never smoker, denies ETOH,
Family father cancer
Patient Medication
�Medication �Instructions �Recorded �Confirmed �Last Taken �Type
Nutrafol Men 2 cap PO DAILY Supplement 02/06/25 02/06/25 02/06/25 History
diphenhydramine 25 2 tab PO HSPRN PRN sleep 02/06/25 02/06/25 02/05/25 History
mg-acetaminophen 500 mg tablet
(Acetaminophen PM)
omega 3-zuq-qmg-fish oil 900 2 cap PO DAILY Supplement 02/06/25 02/06/25 02/06/25 History
mg-1,400 mg capsule,delayed release
pantoprazole 40 mg tablet,delayed 40 mg PO BID Gastrointestinal Issue 02/06/25 02/06/25 02/06/25 History
release
polyethylene glycol 3350 17 gram 17 g PO DAILYPRN PRN constipation 02/06/25 02/06/25 02/04/25 History
oral powder packet
rosuvastatin 5 mg tablet 5 mg PO DAILY High Cholesterol 02/06/25 02/06/25 02/06/25 History
therapeutic multivitamin 1 tab PO DAILY Supplement 02/06/25 02/06/25 02/06/25 History
Active Medications
Generic Name Dose Route Start Last Admin
Trade Name Freq PRN Reason Stop Dose Admin
Diphenhydramine HCl 25 mg 02/08/25 09:37 02/09/25 21:32
Diphenhydramine 50 Mg/Ml 1 Ml Vial IV 03/08/25 09:36 25 mg
HSPRN PRN Administration
sleep
Enoxaparin Sodium 40 mg 02/07/25 18:00 02/09/25 18:14
Enoxaparin Sodium 40 Mg/0.4 Ml Syringe SC 03/07/25 17:59 40 mg
QPM IGGY Administration
Hydromorphone HCl 0.5 mg 02/06/25 17:23 02/10/25 01:18
Hydromorphone 0.5 Mg/0.5 Ml Syringe IV 02/20/25 17:22 0.5 mg
Q3HPRN PRN Administration
moderate pain
Hydromorphone HCl 1 mg 02/06/25 17:23 02/06/25 17:37
Hydromorphone 1 Mg/Ml Carpuject IV 02/20/25 17:22 1 mg
Q3HPRN PRN Administration
severe pain
Piperacillin Sod/Tazobactam Sod 3.375 gram in 50 mls @ 100 mls/hr 02/07/25 02:00 02/10/25 08:27
Zosyn IV 50 mls
Q6H IGGY Administration
Sodium Chloride 1,000 mls @ 50 mls/hr 02/09/25 11:45 02/10/25 08:34
Nss IV 1,000 mls
.Q20H IGGY Administration
Ketorolac Tromethamine 15 mg 02/07/25 01:28 02/09/25 23:43
Ketorolac 15 Mg/Ml Injection IV 02/11/25 14:46 15 mg
Q6HPRN PRN Administration
mild pain
Ondansetron HCl 4 mg 02/06/25 18:53
Ondansetron 4 Mg/2 Ml Vial IV 03/06/25 18:52
Q6HPRN PRN
nausea\\vomiting
Pantoprazole Sodium 40 mg 02/07/25 08:00 02/10/25 08:25
Pantoprazole Sodium 40 Mg/10 Ml Vial IV 03/07/25 07:59 40 mg
BID IGGY Administration
Sodium Chloride 0 flush 02/06/25 16:00
Sodium Chloride 0.9% (Flush) Syringe IV 03/06/25 15:59
PER PROTOCOL IGGY
Sodium Chloride 10 ml 02/07/25 08:00 08/28/25 08:27
Sodium Chloride 0.9% (Preservative Free) 10 Ml Vial IV 03/07/25 07:59 10 ml
BID IGGY Administration
Review of Systems
-
ROS is notable for HPI, otherwise negative
Physical Exam
-
General: Well Developed, Well Nourished, No Apparent Distress and Comfortable
HEENT: Negative Jaundice
Cardiology: Normal Sinus Rhythm
Pulmonary: Clear
GI: Soft and Other (surgical dressing CDI)
Musculoskeletal: No Edema
Extremities: Pulses Present; Negative Edema
Neurology: Non Focal
Skin: Warm
Psych: Calm
Labs
Lab Results
WBC 8.9 10^3/uL (4.8-10.8) 02/09/25 09:03
RBC 4.16 10^6/uL (4.70-6.10) L 02/09/25 09:03
Hgb 12.4 g/dL (13.0-18.0) L 02/09/25 09:03
Hct 36.8 % (39.0-52.0) L 02/09/25 09:03
MCV 88.5 fL (80.0-94.0) 02/09/25 09:03
MCH 29.8 pg (27.0-31.0) 02/09/25 09:03
MCHC 33.7 g/dL (33.0-37.0) 02/09/25 09:03
RDW 13.2 % (11.5-14.5) 02/09/25 09:03
Plt Count 168 10^3/uL (130-400) 02/09/25 09:03
MPV 10.2 fL (7.4-10.4) 02/09/25 09:03
Abs Immat Gran (auto) 0.0 10^3/uL (0-0.05) 02/06/25 12:54
Absolute Neuts (auto) 6.6 10^3/uL (1.4-6.5) H 02/06/25 12:54
Absolute Lymphs (auto) 1.2 10^3/uL (1.2-3.4) 02/06/25 12:54
Absolute Monos (auto) 0.6 10^3/uL (0.1-0.6) 02/06/25 12:54
Absolute Eos (auto) 0.2 10^3/uL (0-0.7) 02/06/25 12:54
Absolute Basos (auto) 0.1 10^3/uL (0-0.2) 02/06/25 12:54
Immature Gran % 0.5 % (0-0.5) 02/06/25 12:54
Neutrophils % 75.5 % (42.2-75.2) H 02/06/25 12:54
Lymphocytes % 13.9 % (20.5-51.1) L 02/06/25 12:54
Monocytes % 7.3 % (1.7-9.3) 02/06/25 12:54
Eosinophils % 2.1 % (0-6) 02/06/25 12:54
Basophils % 0.7 % (0-2) 02/06/25 12:54
Creatinine 0.7 mg/dL (0.7-1.3) 02/09/25 09:03
Vital Signs
Vital Signs
Temp Pulse Resp BP Pulse Ox
98.4 F 74 16 157/83 96
02/10/25 07:00 02/10/25 07:00 02/10/25 07:00 02/10/25 07:00 02/10/25 07:00
--- NOTE | 2025-02-10 10:21 | W.PN.GS2 ---
Addendum entered and electronically signed by Moshe Wilkins MD 02/10/25 11:21:
I was physically present and personally performed the katz portions of the surgical evaluation and/or procedure with the resident. I discussed the findings, reviewed the resident�s note, and confirmed the medical decision-making. I provided direct
supervision as required and agree with the assessment and plan as documented with the following additions/corrections:
C/o slight increase in pain, slightly more distended on exam. Reports ongoing small flatus. Denies nausea. No issues with PO clears. AFVSS. Will check KUB today, may be developing ileus. Stay on CLD for now. Labs tomorrow
Original Note:
Today's Communication / Plan
-
Abdominal x-ray today for evaluation of increased abdominal pain and mild distention
Clear liquid diet, advancement pending results of x-ray and clinical status
Continue pain control, antiemetics, IV fluids
Monitor clinical status
Assessment / Plan
-
Assessment: Strangulated recurrent left inguinal hernia POD #4 s/p robot-assisted laparoscopic repair, ex lap, small bowel resection, right inguinal lymph node excisional biopsy
Patient reporting no pain, nausea, or vomiting
Patient passed flatus this morning, though no BM since surgery
AFVSS, no leukocytosis
Hemoglobin 12.4, mildly reduced from 14.0 two days ago; suspected delusional given IVF administration
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
Plan:
Abdominal x-ray today for further evaluation in setting of increased pain and mild distention
Heme-onc following for follicular lymphoma
Regimen of piperacillin�tazobactam completed
Pain control with ketorolac, Dilaudid as needed
Ondansetron for nausea as needed
Diet: Clear liquids, advancement to full liquids pending abdominal x-ray
Continue IVF for now while we slowly advance diet
SCDs, Lovenox for DVT prophylaxis
Continue to monitor ability to void following recent Ruiz removal
Monitor I's and O's
Monitor clinical status
Subjective Data
-
Date of Service: February 10, 2025
Patient seen at the bedside POD #4. Patient's abdominal pain increased last night with intensity 7/10, which was subsequently relatively well-controlled with ketorolac and hydromorphone. Abdominal pain is 2/10 intensity while at the bedside.
Patient had some broth for dinner last night. Passed flatus yesterday morning and this morning. No nausea or vomiting. Patient did not sleep well. Patient endorses some increased urinary urgency, though no other urinary symptoms.
Objective Data
-
Intake and Output
02/09/25 02/10/25 02/11/25
06:59 06:59 06:59
Intake Total 2520 / 2520 1080 / 1080
Output Total 500 / 500 1225 / 1225
Balance 2020 / 2020 -145 / -145
Intake:
Oral fluids 360 / 360 480 / 480
IV fluids (Total) 1760 / 1760 600 / 600
IV piggybacks 400 / 400
Output:
Gastrointestinal tube output ( 0 / 0
Total)
[place] Sump 0 / 0
Urine, Voided 500 / 500 1225 / 1225
Other:
Number of approximated SMALL 1
amounts of urine
Number of approximated MODERATE 1
amounts of urine
Vital Signs
Temp Pulse Resp BP Pulse Ox
98.4 F 74 16 157/83 96
02/10/25 07:00 02/10/25 07:00 02/10/25 07:00 02/10/25 07:00 02/10/25 07:00
Lab Results
02/09/25 09:03
02/09/25 09:03
Calcium 8.2 mg/dl (8.4-10.2) L 02/09/25 09:03
Phosphorus 2.8 mg/dl (2.5-4.5) 02/09/25 09:03
Magnesium 2.3 mg/dl (1.6-2.3) 02/09/25 09:03
Physical Exam
-
General: No apparent distress. Conversant.
Abdominal: Soft. Tenderness to percussion and palpation, particularly on the left side. Mild distention. Surgical sites clean, dry, intact. No erythema, no ecchymoses.
Patient has a ruiz catheter: No
Patient has a central line: No
[2025-02-10 10:38] LABS: LDH 246 U/L (120-246); Uric Acid 2.0 mg/dl (3.5-8.5)
--- NOTE | 2025-02-10 11:27 | CM ---
CM following re: discharge planning.
Reviewed pt's chart, met with pt.
Pt is POD #4 s/p robot-assisted laparoscopic repair, ex lap, small bowel resection, right inguinal lymph node excisional biopsy, continue supportive care.
Pt lives alone in 2 story home, [address], has first floor full BA, second floor BR. Independent with ADL.
D/C plan: home with anticipated no needs. Family to transport at discharge.
CM will follow with discharge plan updates as hospitalization progresses
[2025-02-10] MEDS: TORADOL 15 MG IV ×2 (13:45→19:52)
[2025-02-10 15:00] VITALS: BP 123/89
[2025-02-10] MEDS: LOVENOX 40 MG SC (17:30)
[2025-02-10] MEDS: BENADRYL 25 MG IV (22:37)
[2025-02-10 23:00] VITALS: BP 125/75
[2025-02-11 06:42] LABS: Blood Urea Nitrogen 16 mg/dl (9-20); Calcium 8.1 mg/dl (8.4-10.2); Carbon Dioxide 27 mmol/L (22-30); Chloride 105 mmol/L (98-107); Estimated Creatinine Clearance 95 ml/min; Glucose 120 mg/dl (70-99); Magnesium 2.0 mg/dl (1.6-2.3); Potassium 3.7 mmol/L (3.5-5.1); Sodium 135 mmol/L (135-145); eGFR > 60.00
[2025-02-11 07:30] VITALS: BP 139/73
--- NOTE | 2025-02-11 08:42 | W.PN.GS2 ---
Addendum entered and electronically signed by Moshe Wilkins MD 02/11/25 10:23:
I was physically present and personally performed the katz portions of the surgical evaluation and/or procedure with the resident. I discussed the findings, reviewed the resident�s note, and confirmed the medical decision-making. I provided direct
supervision as required and agree with the assessment and plan as documented with the following additions/corrections:
Adv to FLD
Plan for LRD tomorrow if no further issues and likely DC home when tolerating LRD
F/U with Heme/Onc
F/U with GS for staple removal in 2 weeks
Original Note:
Today's Communication / Plan
-
Continue clear liquid diet for now, consider advancement to full liquids later today pending clinical status
Continue pain control, antiemetics as needed
Assessment / Plan
-
Assessment: Strangulated recurrent left inguinal hernia POD #5 s/p robot-assisted laparoscopic repair, ex lap, small bowel resection, right inguinal lymph node excisional biopsy
Suspected resolving ileus given abdominal x-ray findings yesterday followed by BM, improving abdominal exam
Patient reporting no pain, nausea, or vomiting
Abdominal x-ray (02/10): Mild probable small bowel dilatation
Patient had a BM yesterday (first since surgery) subsequent to abdominal x-ray yesterday
AFVSS, labs unremarkable, benign abdominal exam
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
Plan:
Heme-onc following for follicular lymphoma
Regimen of piperacillin�tazobactam discontinued
Pain control with ketorolac, Dilaudid as needed
Ondansetron for nausea as needed
Diet: Clear liquids, consider advancement to FLD later today
DVT PPx: SCDs, Lovenox
GI PPx: Pantoprazole
Monitor I's and O's
Monitor clinical status
Subjective Data
-
Date of Service: February 11, 2025
Patient seen at the bedside on POD #5. No pain. BM yesterday, which occurred after his abdominal x-ray that showed bowel dilatation. Voiding without issue. Broth last night for dinner, without subsequent issue. No nausea or vomiting. OOB
intermittently.
Objective Data
-
Intake and Output
02/10/25 02/11/25 02/12/25
06:59 06:59 06:59
Intake Total 1080 / 1080 1090 / 1090
Output Total 1225 / 1225
Balance -145 / -145 1090 / 1090
Intake:
Oral fluids 480 / 480 1040 / 1040
IV fluids (Total) 600 / 600
IV piggybacks 50 / 50
Output:
Urine, Voided 1225 / 1225
Other:
Number of approximated SMALL 1 1
amounts of urine
Number of approximated MODERATE 2
amounts of urine
Number of unmeasured liquid
stools
Rectum 2
Vital Signs
Temp Pulse Resp BP Pulse Ox
97.8 F 65 16 139/73 95
02/11/25 07:30 02/11/25 07:30 02/11/25 07:30 02/11/25 07:30 02/11/25 07:30
Lab Results
02/09/25 09:03
02/11/25 05:26
Calcium 8.1 mg/dl (8.4-10.2) L 02/11/25 05:26
Phosphorus 3.0 mg/dl (2.5-4.5) 02/11/25 05:26
Magnesium 2.0 mg/dl (1.6-2.3) 02/11/25 05:26
Physical Exam
-
General: NAD, conversant.
Abdominal: Soft, nontender. Nondistended. No ecchymoses. Surgical sites CDI.
Patient has a ruiz catheter: No
Patient has a central line: No
[2025-02-11] MEDS: NSS (PRESERVATIVE FREE) 10 ML IV ×2 (09:11→20:20)
[2025-02-11] MEDS: PROTONIX IV 40 MG IV ×2 (09:11→20:20)
[2025-02-11] MEDS: FLUSH (NSS) 2 FLUSH IV (09:12)
--- NOTE | 2025-02-11 10:20 | W.PN.GS2 ---
Today's Communication / Plan
-
Adv to FLD
Assessment / Plan
-
Assessment: Strangulated recurrent left inguinal hernia POD #5 s/p robot-assisted laparoscopic repair, ex lap, small bowel resection, right inguinal lymph node excisional biopsy
Suspected resolving ileus given abdominal x-ray findings yesterday followed by BM, improving abdominal exam
Patient reporting no pain, nausea, or vomiting
Abdominal x-ray (02/10): Mild probable small bowel dilatation
Patient had a BM yesterday (first since surgery) subsequent to abdominal x-ray yesterday
AFVSS, labs unremarkable, benign abdominal exam
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
Plan:
Heme-onc following for follicular lymphoma
Regimen of piperacillin�tazobactam discontinued
Pain control with ketorolac, Dilaudid as needed
Ondansetron for nausea as needed
Diet: Clear liquids, consider advancement to FLD later today
DVT PPx: SCDs, Lovenox
GI PPx: Pantoprazole
Monitor I's and O's
Monitor clinical status
Subjective Data
-
Date of Service: February 11, 2025
AFVSS, had a BM, passing flatus, denies nausea, pain controlled, voiding
Objective Data
-
Intake and Output
02/10/25 02/11/25 02/12/25
06:59 06:59 06:59
Intake Total 1080 / 1080 1090 / 1090
Output Total 1225 / 1225
Balance -145 / -145 1090 / 1090
Intake:
Oral fluids 480 / 480 1040 / 1040
IV fluids (Total) 600 / 600
IV piggybacks 50 / 50
Output:
Urine, Voided 1225 / 1225
Other:
Number of approximated SMALL 1 1
amounts of urine
Number of approximated MODERATE 2
amounts of urine
Number of unmeasured liquid
stools
Rectum 2
Vital Signs
Temp Pulse Resp BP Pulse Ox
97.8 F 65 16 139/73 95
02/11/25 07:30 02/11/25 07:30 02/11/25 07:30 02/11/25 07:30 02/11/25 07:30
Lab Results
02/09/25 09:03
02/11/25 05:26
Calcium 8.1 mg/dl (8.4-10.2) L 02/11/25 05:26
Phosphorus 3.0 mg/dl (2.5-4.5) 02/11/25 05:26
Magnesium 2.0 mg/dl (1.6-2.3) 02/11/25 05:26
Physical Exam
-
GenL: NAD
Abd: soft, minimally ttp, incisions cdi with brijesh
Patient has a ruiz catheter: No
Patient has a central line: No
[2025-02-11 11:19] LABS: Hepatitis B Surface Antigen Negative (Negative)
--- NOTE | 2025-02-11 11:28 | CM ---
CM following re: discharge planning.
Reviewed pt's chart, met with pt.
Pt is POD #5 s/p robot-assisted laparoscopic repair, ex lap, small bowel resection, right inguinal lymph node excisional biopsy, continue supportive care. Pt stated he feels much better and he stated he was told he will be discharged home tomorrow,
advancing diet.
IMM reviewed, placed on chart, pt has a copy.
Pt lives with spouse in 2 story home, [address], has first floor full BA, second floor BR. Independent with ADL.
No after care VN needs identified.
D/C plan: home with no needs. Spouse to to transport at discharge.
[2025-02-11 15:20] VITALS: BP 134/89
[2025-02-11] MEDS: LOVENOX 40 MG SC (18:17)
[2025-02-11] MEDS: BENADRYL 25 MG IV (21:43)
[2025-02-11 23:00] VITALS: BP 121/61
[2025-02-12] MEDS: ROXICODONE 5 MG PO (00:31)
[2025-02-12 07:05] VITALS: BP 134/71
[2025-02-12] MEDS: NSS (PRESERVATIVE FREE) 10 ML IV ×2 (08:32→20:23)
[2025-02-12] MEDS: PROTONIX IV 40 MG IV ×2 (08:32→20:24)
--- NOTE | 2025-02-12 11:59 | W.PN.GS2 ---
Today's Communication / Plan
-
-- Maintain on fulls, awaiting resolution of ileus
-- Consider contrast study tomorrow for diagnostic and therapeutic purposes
Assessment / Plan
-
Assessment: Strangulated recurrent left inguinal hernia POD #5 s/p robot-assisted laparoscopic repair, ex lap, small bowel resection, right inguinal lymph node excisional biopsy
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
Repeat abdominal x-ray shows persistent small and large bowel gaseous distention consistent with ileus
AVSS
No new labs
Slow resolving ileus given abdominal x-ray findings yesterday followed by BM, improving abdominal exam
Plan:
Maintain on fulls
Heme-onc following for follicular lymphoma
Pain control with Tylenol, Oxycodone, Dilaudid as needed
Ondansetron for nausea as needed
DVT PPx: SCDs, Lovenox
GI PPx: Pantoprazole
Subjective Data
-
Date of Service: February 12, 2025
Mushy complaints. Denies worsening abdominal pain. No nausea. Passing minimal flatus, no further BMs. Afebrile. Ambulating. Voiding.
Objective Data
-
Intake and Output
02/11/25 02/12/25 02/13/25
06:59 06:59 06:59
Intake Total 1090 / 1090 660 / 660
Balance 1090 / 1090 660 / 660
Intake:
Oral fluids 1040 / 1040 660 / 660
IV piggybacks 50 / 50
Other:
Number of approximated SMALL 1
amounts of urine
Number of approximated MODERATE 2 1
amounts of urine
How many times incontinent 9
MODERATE amount urine
Number of unmeasured liquid
stools
Rectum 2
Vital Signs
Temp Pulse Resp BP Pulse Ox
97.5 F 62 16 134/71 96
02/12/25 07:05 02/12/25 07:05 02/12/25 07:05 02/12/25 07:05 02/12/25 08:31
Lab Results
02/09/25 09:03
02/11/25 05:26
Calcium 8.1 mg/dl (8.4-10.2) L 02/11/25 05:26
Phosphorus 3.0 mg/dl (2.5-4.5) 02/11/25 05:26
Magnesium 2.0 mg/dl (1.6-2.3) 02/11/25 05:26
Physical Exam
-
Gen: NAD
Abd: soft, minimal tenderness, mild/moderate distension, tympany, non-peritoneal, incisions c/d/i - no erythema, ecchymosis or drainage, brijesh in place
Patient has a ruiz catheter: No
Patient has a central line: No
[2025-02-12 15:00] VITALS: BP 148/80
[2025-02-12] MEDS: LOVENOX 40 MG SC (17:29)
[2025-02-12] MEDS: BENADRYL 25 MG IV (20:32)
[2025-02-12 23:00] VITALS: BP 138/86
[2025-02-13 06:21] LABS: Hematocrit 36.8 % (39.0-52.0); Hemoglobin 12.4 g/dL (13.0-18.0); Mean Corp Hgb Conc. 33.7 g/dL (33.0-37.0); Mean Corpuscular Volume 87.2 fL (80.0-94.0); Platelet Count 218 10^3/uL (130-400); Red Cell Dist. Width 13.1 % (11.5-14.5)
[2025-02-13 06:23] LABS: Blood Urea Nitrogen 13 mg/dl (9-20); Calcium 8.6 mg/dl (8.4-10.2); Carbon Dioxide 28 mmol/L (22-30); Chloride 104 mmol/L (98-107); Estimated Creatinine Clearance 95 ml/min; Glucose 111 mg/dl (70-99); Potassium 4.4 mmol/L (3.5-5.1); Sodium 136 mmol/L (135-145); eGFR > 60.00
[2025-02-13 07:05] VITALS: BP 152/98
--- NOTE | 2025-02-13 10:44 | W.PN.GS2 ---
Today's Communication / Plan
-
-- Milk of mag and Miralax
-- Maintain on fulls, possible LRD this afternoon
Assessment / Plan
-
Assessment: Strangulated recurrent left inguinal hernia POD #6 s/p robot-assisted laparoscopic repair, ex lap, small bowel resection, right inguinal lymph node excisional biopsy
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
Repeat abdominal x-ray shows persistent small and large bowel gaseous distention consistent with ileus
AVSS
No new labs
Slow resolving ileus, continued small and large bowel dilation
Plan:
Milk of mag and Miralax
Maintain on fulls, possible LRD this afternoon
Heme-onc following for follicular lymphoma
Pain control with Tylenol, Oxycodone, Dilaudid as needed
Ondansetron for nausea as needed
DVT PPx: SCDs, Lovenox
GI PPx: Pantoprazole
Subjective Data
-
Date of Service: February 13, 2025
No complaints. Reports passing more flatus. No BM. No nausea or vomiting. Imaging. Voiding.
Objective Data
-
Intake and Output
02/12/25 02/13/25 02/14/25
06:59 06:59 06:59
Intake Total 660 / 660 780 / 780
Balance 660 / 660 780 / 780
Intake:
Oral fluids 660 / 660 480 / 480
IV fluids (Total) 300 / 300
Other:
Number of approximated MODERATE 1 2
amounts of urine
How many times incontinent 9
MODERATE amount urine
Vital Signs
Temp Pulse Resp BP Pulse Ox
98.6 F 66 16 152/98 97
02/13/25 07:05 02/13/25 07:05 02/13/25 07:05 02/13/25 07:05 02/13/25 07:05
Lab Results
02/13/25 04:06
02/13/25 04:06
Calcium 8.6 mg/dl (8.4-10.2) 02/13/25 04:06
Phosphorus 3.0 mg/dl (2.5-4.5) 02/11/25 05:26
Magnesium 2.0 mg/dl (1.6-2.3) 02/11/25 05:26
Physical Exam
-
Gen: NAD
Abd: soft, NT, distended, tympanitic, non-peritoneal, incisions c/d/i - no erythema, ecchymosis or drainage, brijesh in place
Patient has a ruiz catheter: No
Patient has a central line: No
[2025-02-13] MEDS: PROTONIX IV 40 MG IV ×2 (11:12→19:28)
[2025-02-13] MEDS: MIRALAX 17 GRAMS PO ×2 (11:12→18:11)
[2025-02-13] MEDS: MILK OF MAGNESIA 30 ML PO (11:12)
[2025-02-13] MEDS: NSS (PRESERVATIVE FREE) 10 ML IV ×2 (11:13→19:29)
--- NOTE | 2025-02-13 13:21 | CM ---
CM following for discharge planning. Pt admitted with a strangulated recurrent left inguinal hernia. Currently has a slowly resolving ileus; walking in the hallway and in his room independently.
No plan for discharge at this time.
[2025-02-13 14:30] VITALS: BP 138/86
[2025-02-13] MEDS: LOVENOX 40 MG SC (18:11)
[2025-02-13] MEDS: BENADRYL 25 MG IV (21:35)
[2025-02-13 23:00] VITALS: BP 135/78
[2025-02-14 07:10] VITALS: BP 128/75
[2025-02-14] MEDS: MIRALAX 17 GRAMS PO (08:32)
[2025-02-14] MEDS: PROTONIX IV 40 MG IV (08:32)
[2025-02-14] MEDS: NSS (PRESERVATIVE FREE) 10 ML IV (08:32)
--- NOTE | 2025-02-14 08:57 | W.PN.GS2 ---
Addendum entered and electronically signed by Ezequiel Ramirez MD 02/14/25 09:11:
I saw and examined the patient independently.
The resident's documentation was reviewed and I agree with the note, assessment and plan except where noted below.
Comment: 79-year-old male postoperative day 8 from a robot-assisted laparoscopic recurrent strangulated left inguinal hernia repair, ex lap, small bowel resection, right inguinal lymph node excisional biopsy for a strangulated recurrent left
inguinal hernia. Doing well, expected postoperative ileus resolved.
Will DC home today.
Follow-up to be scheduled on Friday for staple removal.
Patient to follow-up with Dr. Boss regarding his new diagnosis of follicular lymphoma.
Original Note:
Today's Communication / Plan
-
Patient exhibits ROBF with no nausea, vomiting, pain
Plan for discharge home this morning
Follow-up outpatient with Dr. Wilkins on Friday (03/15) for staple removal
Follow-up outpatient with heme-onc for follicular lymphoma
Assessment / Plan
-
Assessment: Strangulated recurrent left inguinal hernia POD #8 s/p robot-assisted laparoscopic repair, ex lap, small bowel resection, right inguinal lymph node excisional biopsy
Suspected resolved ileus given benign abdominal exam and patient had BM this morning, passing flatus, no nausea/vomiting, no pain, eating low residue diet without issue
Abdominal x-rays 02/12 and 02/13 suggested persistent ileus
AFVSS, no new labs today
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
Plan:
Plan for discharge home this morning
Follow-up outpatient with Dr. Wilkins on Friday (02/16) for staple removal
Follow-up outpatient with heme-onc for follicular lymphoma
Continue low residue diet1
Pain control with ketorolac, Dilaudid as needed
Ondansetron for nausea as needed
DVT PPx: SCDs, Lovenox
GI PPx: Pantoprazole
Monitor I's and O's
Monitor clinical status
Subjective Data
-
Date of Service: February 14, 2025
Patient is seen at the bedside on POD #8. Patient states he had a BM this morning and is passing flatus. Patient ate roast beef for dinner last night and had breakfast this morning without issue. No pain, nausea, vomiting, or belching. Patient
has been OOB walking around the hospital floor this morning. Voiding without issue.
Objective Data
-
Intake and Output
02/13/25 02/14/25 02/15/25
06:59 06:59 06:59
Intake Total 780 / 780 480 / 480
Balance 780 / 780 480 / 480
Intake:
Oral fluids 480 / 480 480 / 480
IV fluids (Total) 300 / 300
Other:
Number of approximated MODERATE 2 1
amounts of urine
Vital Signs
Temp Pulse Resp BP Pulse Ox
97.8 F 67 20 128/75 97
02/14/25 07:10 02/14/25 07:10 02/14/25 07:10 02/14/25 07:10 02/14/25 07:10
Lab Results
02/13/25 04:06
02/13/25 04:06
Calcium 8.6 mg/dl (8.4-10.2) 02/13/25 04:06
Phosphorus 3.0 mg/dl (2.5-4.5) 02/11/25 05:26
Magnesium 2.0 mg/dl (1.6-2.3) 02/11/25 05:26
Physical Exam
-
General: NAD, conversant.
Abdominal: Soft, nontender. Nondistended. No rigidity or guarding. Surgical sites clean, dry, and intact. No erythema or ecchymosis.
Patient has a ruiz catheter: No
Patient has a central line: No
--- NOTE | 2025-02-18 08:47 | OR.RPT ---
Operative Report
Operative Report
Primary Surgeon: Claudette
Pre-op Diagnosis: Incarcerated recurrent left inguinal hernia, right inguinal lymphadenopathy
Post-op Diagnosis: Strangulated recurrent left inguinal hernia, right inguinal lymphadenopathy
Procedure Performed: Robot assisted laparoscopic repair of strangulated recurrent left inguinal hernia, exploratory laparotomy, small bowel resection, right inguinal lymph node excisional biopsy
Anesthesia Type: GETA
Specimen / Cultures: Right inguinal lymph node
Estimated Blood Loss: 20cc
Complications: None immediate
Operative Findings: Unable to reduce left inguinal hernia robotically, counter incision in the groin created to allow reduction; recurrent indirect defect noted, posterior preperitoneal repair performed with phasix mesh 6in x8in trimmed to size,
5cm periumbilical incision for exteriorization of necrotic loop of bowel (about 6cm segment), necrotic bowel resected and side-side stapled anastomosis created with 80mm AKANKSHA purple loads; bulky right inguinal lymph node excised
DOS: 02/07/25
Indications: This 79M developed a strangulated left inguinal hernia. He also had right inguinal lymphadenopathy. Emergent robot assisted laparoscopic repair was elected with concomitant right inguinal lymph node excisional biopsy.
Description of procedure:� The patient was taken to the operating room and positioned into supine position. The patient�s abdomen was prepped and draped in standard sterile fashion. A time-out was completed verifying correct patient, procedure,
site, positioning, and implants and special equipment prior to beginning this procedure. The groin hernias were manually reduced.
A stab incision was made in the left upper quadrant, a Veress needle was inserted and proper position was confirmed by aspiration and saline drop test. Following this, pneumoperitoneum was created with insufflation of carbon dioxide to 12 mmHg. Then
a 8mm robotic trocar was inserted above and to the left of the umbilicus. A laparoscope was inserted and the area of initial trocar entry and Veress needle placement were both inspected and no injuries were found. Two 8mm trocars were then placed
lateral to the rectus sheath under direct visualization.
Both inguinal regions were inspected and the median umbilical ligament, medial umbilical ligament, and lateral umbilical fold were identified. Attention was turned to the left groin. Multiple attempts at hernia reduction were made unsuccessfully.
The peritoneum was incised transversely above the defect and a flap was developed in the caudad direction. Parmjit�s ligament was identified ultimately dissected to its junction with the iliac vein and the space of Retzius was developed bluntly. The
dissection was continued inferiorly to the iliopubic tract, with care taken to avoid injury to the femoral branch of the genitofemoral nerve and the lateral femoral cutaneous nerve. Again attempts were made at reduction of the hernia contents
unsuccessfully.
A counter incision was made in the groin and carries down to the external oblique aponeurosis with cautery. The external oblique was opened with a #15 blade stab and this was carried down to the distorted external ring with metzenbaum ciara,
elevating the layer to protect ilioinguinal nerve. The hernia contents were identified and contained necrotic small bowel. It was difficult to exteriorize more bowel through this opening and the decision was made to reduce the contents into the
abdomen.The skin incision was closed with penetrating towel clips and the next part of the procedure was performed robotically.
The cord structures were parietalized. The direct space was inspected and a hernia defect was not identified. The femoral space was inspected and no defect was identified. The indirect space was inspected and the empty hernia sac was identified and
reduced.
A phasix mesh was trimmed to size and passed through a trocar. The mesh was placed into the preperitoneal space and moved into position to lay flat and completely cover the direct, indirect, and femoral spaces with overlap at the midline. The mesh
was secured into place using 2-0 vicryl suture to Parmjit�s ligament medially and laterally. Care was taken to avoid the inferolateral triangles containing the iliac vessels and genital nerves. The peritoneal flap was closed over the mesh and secured
with 2-0 monocryl stratafix suture in similar positions of safety. A large flap rent was closed with 2-0 monoryl styratafix suture. A 14g angiocath was used to decompress the preperitoneal space revealing good seal and all mesh in good position
without folding or curling.
The robot was undocked and the remaining part of the procedure was performed in open fashion. A limited periumbilical incision was made at the midline and a small zuleima wound protector was placed. The necrotic loop of small bowel was exteriorized.
The necrotic segment was stapled off proximally and distally with healthy margins and liberated from the mesetery with clamps and 2-0 silk ties. This was passed off the table as specimen. A side-side stapled anastomosis was created with 80mm purple
AKANKSHA stapler. The common channel was inspected and hemostatic. A crotch stitch was placed with 2-0 silk suture. The bowel was returned to the abdomen.
This midline incision was closed with 0 PDS stratafix suture and the skin was closed with brijesh. Attention was turned to the left groin. The external oblique aponeurosis was reapproximated with a running 2-0 vicryl suture, taking care to protect
the ilioinguinal nerve. The skin was closed with brijesh.
Attention was turned to the right groin. An incision was made over the bulky lymph node and carried down to the subcutaneous tissue. The node was identified and dissected away from surrounding tissue with using a hemostat for blunt dissection and
judicious electrocautery. The node was excised and passed off the table as specimen. The wound was irrigated and closed with 2-0 vicryl deep dermal sutures and brijesh.
After ensuring adequate hemostasis, the trocars were removed. The trocar incisions were closed at the skin level with brijesh. All counts were correct and the patient tolerated the procedure well and was taken to the postanesthesia care unit in
stable condition.
--- NOTE | 2025-02-18 09:51 | W.DS.TRANS ---
Addendum entered and electronically signed by FRANTZ Lopes 02/18/25 09:56:
Dictated #[id number]
Original Note:
DC Summary - Director Skills
-
Discharge Instructions:
Discharge Diagnosis/Procedures Robotic repair of strangulated left inguinal
hernia, open small bowel resection
Right inguinal lymph node biopsy showing
follicular lymphoma, low grade
Diet No restrictions,Low Fiber
Additional Diets Eat lower fiber foods for the next 2-3 weeks
Activity No strenuous activity
Additional Activity Do not lift over 15lbs for 4-6 weeks
Bathing Restrictions OK to Shower
Wound Care Cover incision with plain dry gauze as needed if
drainage. If no drainage, no need to cover.
Hermann will be removed in the office in 2 weeks
. Pls call for appt.
Instructions: Groin hernia repair (DC)
Stand-Alone Forms:
Changes to Home Medications: No
Discharge Medications:
DC Medications w/original date entered in [facility]
Nutrafol Men 2 cap PO DAILY Supplement 02/06/25
diphenhydramine 25 mg-acetaminophen 500 mg tablet (Acetaminophen PM) 2 tab PO HSPRN PRN sleep 02/06/25
omega 5-jis-wvs-fish oil 900 mg-1,400 mg capsule,delayed release 2 cap PO DAILY Supplement 02/06/25
pantoprazole 40 mg tablet,delayed release 40 mg PO BID Gastrointestinal Issue 02/06/25
polyethylene glycol 3350 17 gram oral powder packet 17 g PO DAILYPRN PRN constipation 02/06/25
rosuvastatin 5 mg tablet 5 mg PO DAILY High Cholesterol 02/06/25
therapeutic multivitamin 1 tab PO DAILY Supplement 02/06/25
Home Medication Changes
Pending Results: No
== END 2025-02-14 10:09 | disposition home or self-care (01) | DRG 820 ==
LOC: 2 SOUTH 08:14
PROVIDERS: Nurse Practitioner Acute Care; Physician Assistant Medical; Registered Nurse; Surgery; ADMITTING PHYSICIAN Surgery; EMERGENCY PHYSICIAN Emergency Medicine; FAMILY PHYSICIAN Nurse Practitioner Acute Care; OTHER PHYSICIAN Internal Medicine Hematology & Oncology
PROC: 0DB80ZZ Excision of Small Intestine, Open Approach (ICD-10-PCS; 2025-02-07)
PROC: 0YJ64ZZ Inspection of Left Inguinal Region, Percutaneous Endoscopic Approach (ICD-10-PCS; 2025-02-07)
PROC: 8E0W4CZ Robotic Assisted Procedure of Trunk Region, Percutaneous Endoscopic Approach (ICD-10-PCS; 2025-02-07)
PROC: 0YU60JZ Supplement Left Inguinal Region with Synthetic Substitute, Open Approach (ICD-10-PCS; 2025-02-07)
PROC: 07BH0ZX Excision of Right Inguinal Lymphatic, Open Approach, Diagnostic (ICD-10-PCS; 2025-02-07)
DX: C82.05 Follicular lymphoma grade I, lymph nodes of inguinal region and lower limb (principal); K55.021 Focal (segmental) acute infarction of small intestine; K40.31 Unilateral inguinal hernia, with obstruction, without gangrene, recurrent; K56.7 Ileus, unspecified; K21.9 Gastro-esophageal reflux disease without esophagitis; R59.0 Localized enlarged lymph nodes; K80.20 Calculus of gallbladder without cholecystitis without obstruction; K44.9 Diaphragmatic hernia without obstruction or gangrene; K59.00 Constipation, unspecified; E78.00 Pure hypercholesterolemia, unspecified; Z96.612 Presence of left artificial shoulder joint; Z85.820 Personal history of malignant melanoma of skin; Z90.49 Acquired absence of other specified parts of digestive tract; Z80.9 Family history of malignant neoplasm, unspecified
CPT/HCPCS: 74018; 74177; 80048; 81003; 81015; 83605; 83615; 83735; 84100; 84550; 85025; 85027; 86704; 86706; 86803; 87340; 88307; 88341; 88342; 96361; 96374; 96375; 96376; 99285; C1781; Q9967

== ENCOUNTER → 2025-03-17 08:31 | Outpatient (REF) | payer OTHER, SELFPAY ==
[2025-03-17 08:59] LABS: Hematocrit 39.4 % (39.0-52.0); Hemoglobin 13.0 g/dL (13.0-18.0); Mean Corp Hgb Conc. 33.0 g/dL (33.0-37.0); Mean Corpuscular Volume 92.1 fL (80.0-94.0); Nucleated Red Blood Cells % 0 % (-); Platelet Count 196 10^3/uL (130-400); Red Cell Dist. Width 13.6 % (11.5-14.5)
[2025-03-17 09:10] LABS: INR 0.90; PT 12.6 Sec (11.4-14.6)
[2025-03-17] MEDS: ATIVAN 0.5 MG PO (09:11)
[2025-03-17 09:13] VITALS: BP 124/64; BP_SYST 72
[2025-03-17 10:58] VITALS: BP 115/72
[2025-03-17 11:00] VITALS: BP 129/67
[2025-03-17 11:05] VITALS: BP 121/84
[2025-03-17 11:10] VITALS: BP 127/69
[2025-03-17 11:15] VITALS: BP 115/76
== END ==
LOC: RADI 08:31
PROVIDERS: ATTENDING PHYSICIAN Internal Medicine Hematology & Oncology; FAMILY PHYSICIAN Family Medicine; REFERRING PHYSICIAN Physician Assistant
DX: C82.15 Follicular lymphoma grade II, lymph nodes of inguinal region and lower limb (principal)
CPT/HCPCS: 36415; 38222; 77012; 85025; 85610; 88305; 88311; 88312; 88313

== ENCOUNTER → 2025-03-21 07:40 | Outpatient (REF) | payer OTHER, SELFPAY ==
[2025-03-21 07:39] LABS: Hematocrit 38.6 % (39.0-52.0); Hemoglobin 12.8 g/dL (13.0-18.0); Mean Corp Hgb Conc. 33.2 g/dL (33.0-37.0); Mean Corpuscular Volume 90.0 fL (80.0-94.0); Nucleated Red Blood Cells % 0 % (-); Platelet Count 206 10^3/uL (130-400); Red Cell Dist. Width 13.6 % (11.5-14.5)
[2025-03-21 07:49] LABS: Glucose 113 mg/dl (70-99); LDH 174 U/L (120-246)
== END ==
LOC: PET 07:40
PROVIDERS: ATTENDING PHYSICIAN Internal Medicine Hematology & Oncology
DX: C82.15 Follicular lymphoma grade II, lymph nodes of inguinal region and lower limb (principal)
CPT/HCPCS: 36415; 82947; 83615; 85025

== ENCOUNTER → 2025-04-12 08:26 | Outpatient (REF) | payer OTHER, SELFPAY ==
[2025-04-12 09:08] VITALS: BP 141/80; BP_SYST 63; BMI 27.4
[2025-04-12] MEDS: ANCEF 10 IV (09:19)
[2025-04-12 10:15] VITALS: BP 127/68; BP_SYST 68
[2025-04-12 10:30] VITALS: BP 122/73
== END ==
LOC: RADI 08:26
PROVIDERS: ATTENDING PHYSICIAN Internal Medicine Hematology & Oncology; FAMILY PHYSICIAN Family Medicine
DX: C82.15 Follicular lymphoma grade II, lymph nodes of inguinal region and lower limb (principal)
CPT/HCPCS: 36561; 76937; 77001; 99152; 99153; C1788

== ENCOUNTER → 2025-05-18 12:51 | Outpatient (REF) | payer OTHER, SELFPAY ==
[2025-05-18 13:44] LABS: Hematocrit 39.0 % (39.0-52.0); Hemoglobin 12.7 g/dL (13.0-18.0); Mean Corp Hgb Conc. 32.6 g/dL (33.0-37.0); Mean Corpuscular Volume 95.1 fL (80.0-94.0); Nucleated Red Blood Cells % 0 % (-); Platelet Count 206 10^3/uL (130-400); Red Cell Dist. Width 14.1 % (11.5-14.5)
[2025-05-18 13:55] LABS: ALT (SGPT) 19 U/L (0-50); AST (SGOT) 22 U/L (17-59); Albumin 3.9 g/dl (3.5-5.0); Alkaline Phosphatase 94 U/L (38-126); Blood Urea Nitrogen 16 mg/dl (9-20); Calcium 9.0 mg/dl (8.4-10.2); Carbon Dioxide 31 mmol/L (22-30); Chloride 104 mmol/L (98-107); Glucose 142 mg/dl (70-99); Potassium 4.3 mmol/L (3.5-5.1); Sodium 137 mmol/L (135-145); Total Protein 6.7 g/dl (6.3-8.2); Uric Acid 1.5 mg/dl (3.5-8.5); eGFR > 60.00
== END ==
LOC: REG 12:51
PROVIDERS: ATTENDING PHYSICIAN Internal Medicine Hematology & Oncology; FAMILY PHYSICIAN Family Medicine
DX: C82.15 Follicular lymphoma grade II, lymph nodes of inguinal region and lower limb (principal)
CPT/HCPCS: 36415; 80053; 84550; 85025